=== PATIENT | female | born 1995 | race Caucasian/White ===

== ENCOUNTER 2022-06-14 12:14 | Emergency (ER) | payer OTHER ==
[~2022-06-14] VITALS: Ht 170.2 cm; Wt 58.2 kg
[2022-06-14 14:38] VITALS: BP 104/69; PULSE 97
[2022-06-14 14:51] LABS: BASO % 0.2 % (0.0-2.0); EOS % 0.5 % (0.0-4.0); GRAN # 6.5 K/mm3 (1.4-6.5); GRAN % 80.1 % (42.2-75.2); HEMOGLOBIN 11.6 g/dl (12.5-16.0); LYMPH # 0.9 K/mm3 (1.2-3.4); LYMPH % 11.5 % (20.0-51.0); MEAN CELL VOLUME 92 fl (80.0-100.0); MEAN CORPUSCULAR HEMOGLOBIN 30 pg (27-31); MEAN CORPUSCULAR HGB CONC 33 g/dl (33.0-37.0); MEAN PLATELET VOLUME 10.6 fl (7.4-10.4); MONO # 0.6 K/mm3 (0.1-0.6); MONO % 7.3 % (1.7-9.3); PLATELET COUNT 211 K/mm3 (130-400); RED BLOOD COUNT 3.81 M/mm3 (4.10-5.30); REDCELL DISTRIBUTION WIDTH-CV 12.4 % (11.5-14.5)
[2022-06-14 14:52] LABS: HEMATOCRIT 35.1 % (37.0-47.0)
[2022-06-14 14:58] LABS: INR 1.2 (0.8-3.0); PROTHROMBIN TIME 13.3 SECONDS (9.7-12.8)
[2022-06-14 15:06] LABS: ALBUMIN 3.9 gm/dL (3.5-5.0); BILIRUBIN,TOTAL 0.7 mg/dL (0.2-1.2); CALCIUM 8.3 mg/dL (8.4-10.2); CREATININE, serum 0.64 mg/dL (0.57-1.11); POTASSIUM 3.8 mmol/L (3.5-4.5); TOTAL PROTEIN 6.7 gm/dL (6.2-8.1)
== END 2022-06-14 14:45 | disposition short-term general hospital (02) ==
LOC: COL.ER 12:14
PROVIDERS: Nurse Practitioner
DX: S06.5X0A Traumatic subdural hemorrhage without loss of consciousness, initial encounter (principal); S06.6X0A Traumatic subarachnoid hemorrhage without loss of consciousness, initial encounter; Z28.310 Unvaccinated for COVID-19; W01.198A Fall on same level from slipping, tripping and stumbling with subsequent striking against other object, initial encounter
CPT/HCPCS: J1953; J2405; J7030